=== PATIENT | female | born 1990 | race Caucasian/White ===

== ENCOUNTER 2016-09-01 14:42 | Emergency (ER) | payer BC ==
[~2016-09-01] VITALS: Ht 175.3 cm; Wt 63.5 kg
[2016-09-01] MEDS ORDERED: NS 1,000 ML IV ONE (15:30)
[2016-09-01] MEDS ORDERED: ONDANSETRON 4MG/2ML VIAL (J2405) IV ONE (15:30)
[2016-09-01] MEDS ORDERED: MORPHINE 4 MG/ML 1ML SYRINGE IV ONE (15:30)
[2016-09-01 16:01] LABS: BASO % 0.2 % (0.0-1.0); EOS # 0.2 K/mm3 (0.0-0.50); EOS % 1.1 % (0.0-3.0); LARGE UNSTAINED CELL # 0.1 K/mm3 (0.0-0.4); LARGE UNSTAINED CELL % 0.7 % (0.0-4.0); LYMPH # 0.8 K/mm3 (1.5-6.5); LYMPH % 4.9 % (24.0-44.0); MEAN CORPUSCULAR HEMOGLOBIN 30.4 pg (27.0-33.0); MEAN CORPUSCULAR HGB CONC 34.4 g/dl (32.0-36.5); MEAN CORPUSCULAR VOLUME 88.4 fl (80.0-96.0); MONO # 0.7 K/mm3 (0.0-0.8); MONO % 4.4 % (0.0-5.0); NEUTROPHILS # 13.5 K/mm3 (1.8-7.7); NEUTROPHILS % 88.7 % (36.0-66.0); PLATELET COUNT, AUTOMATED 149 k/mm3 (150-450); RED CELL DISTRIBUTION WIDTH 12.5 % (11.5-14.5); WHITE BLOOD COUNT 15.2 K/mm3 (4.0-10.0)
[2016-09-01 16:14] LABS: CONTROL LINE HCG INT CTR LINE PRESENT
[2016-09-01 16:25] LABS: ALBUMIN 4.3 GM/DL (3.2-5.2); ALKALINE PHOSPHATASE 62 U/L (45-117); ALT/SGPT 16 U/L (12-78); AMYLASE 30 U/L (25-115); ANION GAP 11 MEQ/L (8-16); AST/SGOT 7 U/L (15-37); BILIRUBIN,DIRECT 0.2 MG/DL (0.0-0.2); BILIRUBIN,TOTAL 0.6 MG/DL (0.2-1.0); BLOOD UREA NITROGEN 5 MG/DL (7-18); CALCIUM LEVEL 8.7 MG/DL (8.5-10.1); CARBON DIOXIDE LEVEL 27 MEQ/L (21-32); CHLORIDE LEVEL 102 MEQ/L (98-107); CREATININE FOR GFR 0.87 MG/DL (0.55-1.02); GLOMERULAR FILTRATION RATE > 60.0 (>60); GLUCOSE, FASTING 116 MG/DL (70-105); POTASSIUM SERUM 3.8 MEQ/L (3.5-5.1); SODIUM LEVEL 140 MEQ/L (136-145); TOTAL PROTEIN 8.2 GM/DL (6.4-8.2)
--- NOTE | 2016-09-01 16:34 | REP ---
Right upper quadrant sonography: History: Right upper quadrant pain. Comparison study: No comparison study. Findings: Scanning through the right upper quadrant of the abdomen demonstrates a normal sized, thin-walled gallbladder without evidence of stone or polyp. Common bile duct is at the upper range of normal measuring 0.7 cm in greatest diameter. No focal liver lesion is seen. Liver size is normal. No pancreatic abnormality is observed. No right renal abnormality is seen. There is no evidence of ascites. The right kidney measures 11.9 x 6.5 x 4.0 cm. Impression: 0.7 cm common bile duct is at the upper range of normal, otherwise negative right upper quadrant sonography. Signed by Pan Varma MD 09/01/2016 05:06 P
[2016-09-01] MEDS ORDERED: cefTRIAXone SOD 1 GM VIAL (J0696) As Ordered ONE (16:58)
[2016-09-01] MEDS ORDERED: KETOROLAC 30 MG/ML VIAL (J1885) IV ONE (17:00)
[2016-09-01] MEDS ORDERED: cefTRIAXone SOD 2 GM in D5W MINI-BAG PLUS 50 ML IV ONE (17:00)
[2016-09-01] MEDS ORDERED: BACT800T5 PO (17:43)
[2016-09-01] MEDS ORDERED: BACTRIM 160MG/800MG DS TAB PO ONE (17:45)
[2016-09-01 17:55] VITALS: BP 128/67
== END 2016-09-01 17:59 | disposition home or self-care (01) ==
LOC: M ED 15:45
DX: N10 Acute pyelonephritis (principal); N39.0 Urinary tract infection, site not specified
CPT/HCPCS: 76705; 80048; 80076; 81001; 82150; 83690; 84703; 85025; 87088; 87186; 96365; 96375; 99283; J0696; J1885; J2405

== ENCOUNTER → 2016-12-12 | Outpatient (CLI) | payer BC ==
[~2016-12-12] MED LIST: BACT800T5 PO
[2016-12-12 18:09] LABS: MEAN CORPUSCULAR HEMOGLOBIN 30.2 pg (27.0-33.0); MEAN CORPUSCULAR HGB CONC 33.8 g/dl (32.0-36.5); MEAN CORPUSCULAR VOLUME 89.4 fl (80.0-96.0); WHITE BLOOD COUNT 17.5 K/mm3 (4.0-10.0)
[2016-12-12 18:36] LABS: ALBUMIN 4.1 GM/DL (3.2-5.2); ALBUMIN/GLOBULIN RATIO 1.11 (1.00-1.93); ALKALINE PHOSPHATASE 56 U/L (45-117); ALT/SGPT 19 U/L (12-78); ANION GAP 11 MEQ/L (8-16); AST/SGOT 13 U/L (15-37); BILIRUBIN,TOTAL 0.4 MG/DL (0.2-1.0); BLOOD UREA NITROGEN 7 MG/DL (7-18); CALCIUM LEVEL 9.4 MG/DL (8.5-10.1); CARBON DIOXIDE LEVEL 26 MEQ/L (21-32); CHLORIDE LEVEL 102 MEQ/L (98-107); CREATININE FOR GFR 0.99 MG/DL (0.55-1.02); GLOMERULAR FILTRATION RATE > 60.0 (>60); GLUCOSE, FASTING 120 MG/DL (70-105); POTASSIUM SERUM 3.3 MEQ/L (3.5-5.1); SODIUM LEVEL 139 MEQ/L (136-145); TOTAL PROTEIN 7.8 GM/DL (6.4-8.2)
[2016-12-12 21:04] LABS: BANDS 2 % (< 11)
== END ==
LOC: M WUC 13:53
PROVIDERS: ATTEND Physician Assistant
DX: R30.0 Dysuria (principal)

== ENCOUNTER → 2016-12-13 | Outpatient (CLI) | payer BC ==
[2016-12-13 20:14] LABS: ANION GAP 10 MEQ/L (8-16); BLOOD UREA NITROGEN 10 MG/DL (7-18); CALCIUM LEVEL 9.2 MG/DL (8.5-10.1); CARBON DIOXIDE LEVEL 29 MEQ/L (21-32); CHLORIDE LEVEL 100 MEQ/L (98-107); CREATININE FOR GFR 0.88 MG/DL (0.55-1.02); GLOMERULAR FILTRATION RATE > 60.0 (>60); GLUCOSE, FASTING 92 MG/DL (70-105); POTASSIUM SERUM 4.6 MEQ/L (3.5-5.1); SODIUM LEVEL 139 MEQ/L (136-145)
[2016-12-13 20:20] LABS: BASO % 0.3 % (0.0-1.0); EOS % 0.2 % (0.0-3.0); LARGE UNSTAINED CELL # 0.3 K/mm3 (0.0-0.4); LARGE UNSTAINED CELL % 2.2 % (0.0-4.0); LYMPH # 1.1 K/mm3 (1.5-6.5); LYMPH % 7.1 % (24.0-44.0); MEAN CORPUSCULAR HEMOGLOBIN 30.5 pg (27.0-33.0); MEAN CORPUSCULAR HGB CONC 33.9 g/dl (32.0-36.5); MONO # 1.7 K/mm3 (0.0-0.8); MONO % 10.9 % (0.0-5.0); NEUTROPHILS # 12.4 K/mm3 (1.8-7.7); NEUTROPHILS % 79.5 % (36.0-66.0); PLATELET COUNT, AUTOMATED 186 k/mm3 (150-450); RED CELL DISTRIBUTION WIDTH 12.8 % (11.5-14.5); WHITE BLOOD COUNT 15.6 K/mm3 (4.0-10.0)
== END ==
LOC: M WUC 15:52
PROVIDERS: ATTEND Physician Assistant
DX: R10.9 Unspecified abdominal pain (principal); D72.829 Elevated white blood cell count, unspecified

== ENCOUNTER → 2016-12-14 | Outpatient (CLI) | payer BC ==
[~2016-12-14] MED LIST changes: +GASTROGRAFIN SOLUTION 30ML (Q9963) As Ordered ONE; +ISOVUE-370 76% 100ML VIAL (Q9967) As Ordered ONE
--- NOTE | 2016-12-14 16:25 | REP ---
REASON: Abdominal pain. COMPARISON: None. CONTRAST: 100 mL Isovue-370. The lung bases are clear. The liver, gallbladder, spleen, pancreas, adrenal glands, and left kidney are within normal limits. There is wedge shaped low density in the interpolar region of the right kidney with mild perinephric stranding with mild thickening of Mary condyles fascia and the right lateroconal fascia. The abdominal aorta and paraaortic regions are within normal limits. There is no intraabdominal mass or adenopathy. The bowel loops and their mesenteries are within normal limits. There is no free fluid or free air. CT PELVIS: The bowel loops and their mesenteries are within normal limits. There is no free fluid or free air. There is no mass or adenopathy. Bone window technique throughout the exam shows the osseous structures to be within normal limits. IMPRESSION: Right sided pyelonephritis. Followup to resolution is recommenced. Signed by Michael Crisostomo DO 12/14/2016 04:31 P
== END ==
LOC: M RAD 13:37
PROVIDERS: ATTEND Physician Assistant
DX: N10 Acute pyelonephritis (principal); R10.9 Unspecified abdominal pain; D72.829 Elevated white blood cell count, unspecified
CPT/HCPCS: 74177; Q9963; Q9967

== ENCOUNTER → 2016-12-27 | Outpatient (CLI) | payer BC ==
[~2016-12-27] MED LIST changes: -GASTROGRAFIN SOLUTION 30ML (Q9963) As Ordered ONE; -ISOVUE-370 76% 100ML VIAL (Q9967) As Ordered ONE
[2016-12-27 14:01] LABS: ANION GAP 5 MEQ/L (8-16); BLOOD UREA NITROGEN 7 MG/DL (7-18); CALCIUM LEVEL 9.4 MG/DL (8.5-10.1); CARBON DIOXIDE LEVEL 31 MEQ/L (21-32); CHLORIDE LEVEL 106 MEQ/L (98-107); CREATININE FOR GFR 0.72 MG/DL (0.55-1.02); GLOMERULAR FILTRATION RATE > 60.0 (>60); GLUCOSE, FASTING 86 MG/DL (70-105); POTASSIUM SERUM 4.7 MEQ/L (3.5-5.1); SODIUM LEVEL 142 MEQ/L (136-145)
== END ==
LOC: M SMT 10:29
PROVIDERS: ATTEND Specialist
DX: N39.0 Urinary tract infection, site not specified (principal)

== ENCOUNTER → 2016-12-30 | Outpatient (CLI) | payer BC ==
[~2016-12-30] MED LIST changes: +CYSTO-CONRAY II 17.2% 250ML VIAL (Q9958) As Ordered ONE; +FUROSEMIDE 20 MG/2 ML VIAL (J1940) As Ordered ONE
--- NOTE | 2016-12-30 16:15 | REP ---
RENAL NUCLEAR SCAN WITH FLOW AND FUNCTION, AND LASIX ADMINISTRATION: Following the intravenous administration of 8.4 mCi of technetium 99m MAG3, immediate flow images are obtained in the posterior projection showing fairly symmetrical perfusion. Delayed renal function images are performed in the posterior projection every minute for a period of 30 minutes. There is bilateral cortical uptake and washout with bilateral excretion and no evidence of significant hydronephrosis. Split function is 45.4% on the left and 54.6% on the right. Time to peak is normal bilaterally at 2 minutes. T-1/2 is normal bilaterally, 5 minutes on the left and 7.7 minutes on the right. Renal function curves are normal in their downward slopes. At the end of the initial renal scan Lasix was then given, 20 mg intravenously. Further imaging is performed for 21 minutes at which point the patient needed to void. There is further clearance of radiotracer from both collecting systems during the post Lasix scan with no hydronephrosis. There is very mild postvoid residual in the urinary bladder after voiding. IMPRESSION: Essentially normal renal nuclear scan pre and post Lasix administration. Signed by Forrest Farmer MD 12/30/2016 05:07 P
== END ==
LOC: M RAD 13:57
PROVIDERS: ATTEND Specialist
DX: N39.0 Urinary tract infection, site not specified (principal); Q62.5 Duplication of ureter; N12 Tubulo-interstitial nephritis, not specified as acute or chronic
CPT/HCPCS: 78708; A9562; J1940; Q9958

== ENCOUNTER → 2016-12-31 | Outpatient (CLI) | payer BC ==
[~2016-12-31] MED LIST changes: -CYSTO-CONRAY II 17.2% 250ML VIAL (Q9958) As Ordered ONE; +CYSTO-CONRAY II 17.2% 250ML VIAL (Q9958) ONE; -FUROSEMIDE 20 MG/2 ML VIAL (J1940) As Ordered ONE
--- NOTE | 2017-01-03 16:14 | REP ---
VOIDING CYSTOURETHROGRAM: The procedure was performed by FABIÁN Sorenson under the direct supervision of Dr. Farmer. All imaging was reviewed with Dr. Farmer prior to dictation. Under sterile technique, a straight catheter was inserted in the urinary bladder and 500 mL of Cysto-Conray was instilled. FINDINGS: The cafeteria assistant film of the abdomen was unremarkable. The bladder filled normally and was smooth in contour. There was no evidence of mass or filling defects. No reflux was noted during the filling. The patient was unable to void under fluoroscopic observation. Post void imaging shows no signs of reflux. IMPRESSION: Normal VCUG without evidence of reflux. Fluoroscopy time was 42 seconds. Reviewed by FABIÁN Rodrigues 01/03/2017 05:43 PEdited and Signed by Forrest Farmer MD 01/04/2017 04:33 P
== END | disposition home or self-care (01) ==
LOC: M RADPRO 14:52
PROVIDERS: ATTEND Physician Assistant Medical
DX: N39.0 Urinary tract infection, site not specified (principal)
CPT/HCPCS: 51600; 74455; Q9958